=== PATIENT | female | born 1995 ===

== ENCOUNTER 2016-11-27 06:22 | Inpatient (IN) | payer OTHER ==
[2016-11-27 07:14] LABS: BASO # 0.1 K/uL (0.0-0.2); BASO % 0.3 % (0.0-2.0); EOS # 0.2 K/uL (0.0-0.7); EOS % 1.6 % (0.0-4.0); HEMATOCRIT 39.4 % (34.0-47.0); LYMPH # 1.4 K/uL (1.0-4.3); MEAN CELL VOLUME 89.2 fL (81.0-99.0); MEAN CORPUSCULAR HEMOGLOBIN 30.2 pg (27.0-31.0); MEAN CORPUSCULAR HGB CONC 33.9 g/dL (33.0-37.0); MEAN PLATELET VOLUME 8.2 fL (7.2-11.7); MONO # 1.2 K/uL (0.0-0.8); NRBC % 0.1 % (0.0-2.0); PLATELET COUNT 291 K/uL (130-400); RED CELL DISTRIBUTION WIDTH 13.5 % (11.5-14.5)
--- NOTE | 2016-11-27 07:17 | C.PDOC ---
History Of Present Illness 21 yr old female with PMHx of appendicitis (age 12), presents to the ER with complaints of RUQ pain intermittently for the past 1 week. Patient states the pain is worse since yesterday and worse after eating. Reports the pain radiates to the right shoulder. Patient also reports she has not had any food since last night and has not taken any medication for the pain. Patient denies fever, chills, chest pain, SOB, nausea, vomiting, diarrhea, constipation, dysuria, incontinence or back pain. Time Seen by Provider: 11/27/16 07:16 Chief Complaint (Nursing): Abdominal Pain History Per: Patient History/Exam Limitations: no limitations Onset/Duration Of Symptoms: Intermittent Episodes (1 week), Worse Since ( Yesterday) Current Symptoms Are (Timing): Still Present Location Of Pain/Discomfort: RUQ Recent travel outside of the [place]: No Past Medical History Reviewed: Historical Data, Nursing Documentation, Vital Signs Vital Signs: Last Vital Signs Temp 97.9 F 11/28/16 08:00 Pulse 90 11/28/16 08:00 Resp 20 11/28/16 08:00 BP 118/69 11/28/16 08:00 Pulse Ox 97 11/28/16 08:00 Surgical History: Appendectomy Family History: States: No Known Family Hx - Social History Hx Alcohol Use: No Hx Substance Use: No - Immunization History Hx Tetanus Toxoid Vaccination: No Hx Influenza Vaccination: No Hx Pneumococcal Vaccination: No Review Of Systems Except As Marked, All Systems Reviewed And Found Negative. Constitutional: Negative for: Fever, Chills Cardiovascular: Negative for: Chest Pain Respiratory: Negative for: Shortness of Breath Gastrointestinal: Positive for: Abdominal Pain (RUQ pain). Negative for: Nausea , Vomiting, Diarrhea, Constipation Genitourinary: Negative for: Dysuria, Incontinence Musculoskeletal: Negative for: Back Pain Physical Exam - Physical Exam Appears: Non-toxic, In Acute Distress (Mild distress due to pain), Other ((+) Obese) Skin: Warm, Dry, No Rash Oral Mucosa: Moist Chest: Symmetrical, No Tenderness Cardiovascular: Rhythm Regular, No Murmur Respiratory: Normal Breath Sounds, No Rales, No Rhonchi, No Wheezing Gastrointestinal/Abdominal: Soft, Tenderness (RUQ tenderness.), No Guarding, No Rebound, Other ((+) Hernandez sign.) Extremity: Normal ROM, No Swelling Neurological/Psych: Oriented x3, Normal Speech Gait: Steady ED Course And Treatment - Laboratory Results Result Diagrams: 11/27/16 07:03 11/27/16 07:03 O2 Sat by Pulse Oximetry: 100 (RA) Pulse Ox Interpretation: Normal Medical Decision Making Medical Decision Making: PLAN: * US - Gall Bladder * CBC * CMP * HCG * Urinalysis * Morphine IVP * Zoysn IVPB * Sodium Chloride IV US - Gall Bladder HISTORY: RUQ pain COMPARISON: None. TECHNIQUE: Sonographic evaluation of the right upper quadrant of the abdomen. FINDINGS: LIVER: Measures approximately 15.3 cm in length. Smooth contour and normal echogenicity of the liver parenchyma. . There is an echogenic structure within the right lobe liver that measures approximately 1.5 x 1.4 cm that may represent small hemangioma. Followup interval could be performed to assess stability. No intrahepatic bile duct dilatation. GALLBLADDER: Unremarkable. No gallstones. . No sonographic Hernandez sign COMMON BILE DUCT: Measures approximately 4.7 mm. No evidence choledocholithiasis PANCREAS: Unremarkable as visualized. No mass. No ductal dilatation. RIGHT KIDNEY: Measures approximately 10.7 x 5.5 x 4.9 cm in length. Normal echogenicity. No calculus, mass, or hydronephrosis. AORTA: Not visualized. IVC: Unremarkable. OTHER FINDINGS: None . IMPRESSION: Somewhat limited study due to the lack of body habitus . No evidence of cholelithiasis. Probable hemangioma within the right lobe liver. Followup interval could be performed to assess stability Disposition - Disposition Disposition: HOSPITALIZED Disposition Time: 09:44 Condition: STABLE - Clinical Impression Clinical Impression: RUQ abdominal pain - Scribe Statement The provider has reviewed the documentation as recorded by the Brandyn Ferrara Provider Attestation: All medical record entries made by the Brandyn were at my direction and personally dictated by me. I have reviewed the chart and agree that the record accurately reflects my personal performance of the history, physical exam, medical decision making, and the department course for this patient. I have also personally directed, reviewed, and agree with the discharge instructions and disposition.
[2016-11-27 07:26] LABS: CHLORIDE 103 mmol/L (98-107)
[2016-11-27 07:27] LABS: POTASSIUM 3.9 mmol/L (3.6-5.2); SODIUM 139 mmol/L (132-148)
[2016-11-27] MEDS ORDERED: Piperacillin/Tazobact 3.375 GM in Sodium Chloride 100 ML IVPB STA (07:27)
[2016-11-27 07:29] LABS: ALB/GLOB RATIO 1.1 (1.0-2.1); ALKALINE PHOSPHATASE 73 U/L (38-126); ALT/SGPT 31 U/L (9-52); AST/SGOT 31 U/L (14-36); BILIRUBIN,TOTAL 0.6 mg/dL (0.2-1.3); BLOOD UREA NITROGEN 12 mg/dL (7-17); CARBON DIOXIDE 24 mmol/L (22-30); GFR AFRICAN-AMERICAN > 60; GLUCOSE,RANDOM 87 mg/dL (65-105); TOTAL PROTEIN 6.9 g/dL (6.3-8.3)
[2016-11-27 07:30] LABS: CALCIUM 8.7 mg/dl (8.6-10.4)
[2016-11-27] MEDS ORDERED: Morphine 4 MG/ML VIAL ONE ×2 (07:33→08:59)
[2016-11-27] MEDS ORDERED: Piperacillin/Tazobact 3.375 gm 100 ML IVPB ONE (07:33)
[2016-11-27 08:20] LABS: EOSINOPHIL 2 % (0-4); NEUTROPHIL 81 % (50-75); TOTAL CELLS COUNTED 100
[2016-11-27 08:43] LABS: URINE BILIRUBIN NEGATIVE (NEGATIVE); URINE BLOOD NEGATIVE (NEGATIVE); URINE COLOR Yellow (YELLOW); URINE GLUCOSE (UA) NORMAL (Normal); URINE KETONE NEGATIVE (NEGATIVE); URINE LEUKOCYTE ESTERASE TRACE Leu/uL (Negative); URINE PROTEIN NEGATIVE (NEGATIVE)
[2016-11-27 08:48] LABS: RBC URINE 1 /hpf (0-3)
[2016-11-27 08:49] LABS: WBC URINE 2 /hpf (0-5)
[2016-11-27] MEDS ORDERED: Sodium Chloride 0.9% 1,000 ML IV ONE (09:19)
[2016-11-27] MEDS ORDERED: HYDROmorphone 1 mg/ml ISec IVP STA (09:54)
[2016-11-27] MEDS ORDERED: HYDROmorphone 0.5 mg/0.5 ml ISec ONE (10:01)
--- NOTE | 2016-11-27 10:23 | US ---
HISTORY: RUQ pain COMPARISON: None. TECHNIQUE: Sonographic evaluation of the right upper quadrant of the abdomen. FINDINGS: LIVER: Measures approximately 15.3 cm in length. Smooth contour and normal echogenicity of the liver parenchyma. . There is an echogenic structure within the right lobe liver that measures approximately 1.5 x 1.4 cm that may represent small hemangioma. Followup interval could be performed to assess stability. No intrahepatic bile duct dilatation. GALLBLADDER: Unremarkable. No gallstones. . No sonographic Hernandez sign COMMON BILE DUCT: Measures approximately 4.7 mm. No evidence choledocholithiasis PANCREAS: Unremarkable as visualized. No mass. No ductal dilatation. RIGHT KIDNEY: Measures approximately 10.7 x 5.5 x 4.9 cm in length. Normal echogenicity. No calculus, mass, or hydronephrosis. AORTA: Not visualized. IVC: Unremarkable. OTHER FINDINGS: None . IMPRESSION: Somewhat limited study due to the lack of body habitus . No evidence of cholelithiasis. Probable hemangioma within the right lobe liver. Followup interval could be performed to assess stability
[2016-11-27] MEDS: Lactated Ringer's 1,000 ML IV SCH ×2 (14:00→20:05)
[2016-11-27] MEDS: Piperacill/Tazo 3.375gm in Dex 3.375 GM/50 ML BAG IVPB SCH ×2 (14:00→17:00)
--- NOTE | 2016-11-27 15:00 | CP.PCM.HP ---
History of Present Illness - History of Present Illness History of Present Illness: attending: Dr. Menezes CC: Abd pain 21F no relevant PMH presented to the ED with intermittent RUQ pain that started 1 week ago. Most recent episode came after eating fried chicken and pain did not get better until medication in the ED. Associated nausea NBNB vomiting. No diarrhea. Denies F/C CP/SOB numbness tingling in extremities PMH: none PSH: Appendectomy age 12 ALL: NKDA Present on Admission - Present on Admission Any Indicators Present on Admission: No Review of Systems - Review of Systems All systems: reviewed and no additional remarkable complaints except - Constitutional Constitutional: As Per HPI Past Patient History - Infectious Disease Hx of Infectious Diseases: None - Past Social History Smoking Status: Never Smoked - PSYCHIATRIC Hx Substance Use: No - SURGICAL HISTORY Hx Appendectomy: Yes - ANESTHESIA Hx Anesthesia: Yes Hx Anesthesia Reactions: No Meds Allergies/Adverse Reactions: Allergies Allergy/AdvReac Type Severity Reaction Status Date / Time No Known Allergies Allergy Verified 11/27/16 06:32 Physical Exam - Constitutional Appears: Non-toxic, No Acute Distress - Head Exam Head Exam: ATRAUMATIC - Eye Exam Eye Exam: EOMI. absent: Scleral icterus - ENT Exam ENT Exam: Mucous Membranes Moist - Respiratory Exam Respiratory Exam: NORMAL BREATHING PATTERN. absent: Accessory Muscle Use, Respiratory Distress - Cardiovascular Exam Cardiovascular Exam: +S1, +S2. absent: Bradycardia, Tachycardia - GI/Abdominal Exam GI & Abdominal Exam: Soft, Tenderness. absent: Distended, Firm, Hernia, Rigid Additional comments: Tender to palpation RUQ, +Hernandez - Neurological Exam Neurological exam: Alert, Normal Gait, Oriented x3 - Skin Skin Exam: Normal Color, Warm Results - Vital Signs Recent Vital Signs: Last Vital Signs Temp 99.2 F 11/27/16 13:07 Pulse 78 11/27/16 13:07 Resp 20 11/27/16 13:07 BP 116/70 11/27/16 13:07 Pulse Ox 100 11/27/16 13:07 - Labs Result Diagrams: 11/27/16 07:03 11/27/16 07:03 Labs: Laboratory Results - last 24 hr 11/27/16 11/27/16 11/27/16 07:03 07:03 07:03 WBC 15.0 H RBC 4.42 Hgb 13.4 Hct 39.4 MCV 89.2 MCH 30.2 MCHC 33.9 RDW 13.5 Plt Count 291 MPV 8.2 Neut % (Auto) 81.1 H Lymph % (Auto) 9.0 L [place] % (Auto) 8.0 Eos % (Auto) 1.6 Baso % (Auto) 0.3 Neut # 12.2 H Lymph # 1.4 Dubois # 1.2 H Eos # 0.2 Baso # 0.1 Neutrophils % (Manual) 81 H Lymphocytes % (Manual) 9 L Monocytes % (Manual) 8 Eosinophils % (Manual) 2 Platelet Estimate Normal RBC Morphology Normal Sodium 139 Potassium 3.9 Chloride 103 Carbon Dioxide 24 Anion Gap 17 BUN 12 Creatinine 0.6 L Est GFR ( Amer) > 60 Est GFR (Non-Af Amer) > 60 Random Glucose 87 Calcium 8.7 Total Bilirubin 0.6 AST 31 ALT 31 Alkaline Phosphatase 73 Total Protein 6.9 Albumin 3.7 Globulin 3.2 Albumin/Globulin Ratio 1.1 Lipase 45 Urine Color Yellow Urine Clarity Clear Urine pH 6.0 Ur Specific [place] 1.025 Urine Protein Negative Urine Glucose (UA) Normal Urine Ketones Negative Urine Blood Negative Urine Nitrate Negative Urine Bilirubin Negative Urine Urobilinogen 2.0 H Ur Leukocyte Esterase Trace Urine WBC (Auto) 2 Urine RBC (Auto) 1 Ur Squamous Epith Cells < 1 Urine HCG, Qual Negative Assessment & Plan - Assessment and Plan (Free Text) Assessment: 21F RUQ Pain Plan: - NPO - IVF/Abx - GI/DVT ppx - Pain control - conservative management at this time d/w Dr. Clif Webb PGY1
[2016-11-27] MEDS: Morphine 4 MG/ML VIAL IVP PRN ×2 (15:19→20:15)
[2016-11-27] MEDS ORDERED: Iohexol 240 (50 ml) PO ONE (16:00)
[2016-11-27] MEDS ORDERED: Iodixanol 320 MG/ML 100 ML BOTTLE IV ONE (21:09)
[2016-11-28] MEDS: Morphine 4 MG/ML VIAL IVP PRN ×3 (00:08→09:02)
[2016-11-28] MEDS: Piperacill/Tazo 3.375gm in Dex 3.375 GM/50 ML BAG IVPB SCH ×4 (00:09→18:00)
[2016-11-28] MEDS: Lactated Ringer's 1,000 ML IV SCH ×5 (00:14→21:49)
[2016-11-28 09:12] LABS: HEMATOCRIT 40.8 % (34.0-47.0); MEAN CELL VOLUME 90.2 fL (81.0-99.0); MEAN CORPUSCULAR HEMOGLOBIN 29.9 pg (27.0-31.0); MEAN CORPUSCULAR HGB CONC 33.1 g/dL (33.0-37.0); MEAN PLATELET VOLUME 8.2 fL (7.2-11.7); RED CELL DISTRIBUTION WIDTH 13.8 % (11.5-14.5); WHITE BLOOD COUNT 13.1 K/uL (4.8-10.8)
[2016-11-28 09:30] LABS: CHLORIDE 99 mmol/L (98-107); SODIUM 139 mmol/L (132-148)
[2016-11-28 09:32] LABS: ALB/GLOB RATIO 1.1 (1.0-2.1); ALKALINE PHOSPHATASE 65 U/L (38-126); AST/SGOT 26 U/L (14-36); BILIRUBIN,TOTAL 1.4 mg/dL (0.2-1.3); BLOOD UREA NITROGEN 7 mg/dL (7-17); CARBON DIOXIDE 24 mmol/L (22-30); GFR AFRICAN-AMERICAN > 60; GLUCOSE,RANDOM 69 mg/dL (65-105); TOTAL PROTEIN 6.8 g/dL (6.3-8.3)
[2016-11-28 09:33] LABS: ALT/SGPT 31 U/L (9-52); CALCIUM 8.5 mg/dl (8.6-10.4)
--- NOTE | 2016-11-28 11:05 | CT ---
PROCEDURE: CT abdomen and pelvis dated 11/27/2016. HISTORY: RUQ pain COMPARISON: None. TECHNIQUE: Contiguous axial images of the abdomen and pelvis. Oral contrast was administered. No IV contrast given. Coronal and Sagittal reformats generated. Radiation dose: Total exam DLP = 1108.16 mGy-cm. This CT exam was performed using one or more of the following dose reduction techniques: Automated exposure control, adjustment of the mA and/or kV according to patient size, and/or use of iterative reconstruction technique. FINDINGS: LOWER THORAX: Minor atelectasis right lung base. No effusion or basilar pneumothorax. Heart size within range of normal. There may be a tiny hiatal hernia. LIVER: Liver exhibits normal size measuring approximately 15.5 cm in CC dimension. Mild fatty hepatic infiltration. There is a small amount subcapsular hypodense fluid posterolateral surface right lobe liver with mild subjacent mass effect on liver parenchyma ; findings may represent chronic hemorrhage - sequela of old trauma. Clinical correlation recommended. . There also appears to be some infiltration changes within adjacent intercostal spaces There is a small approximately 5.4 mm round/ elliptical shaped focus low attenuation inferior aspect right lobe liver too small to characterize. Most likely represents small hemangioma and probably corresponds to suspected hemangioma on prior gallbladder ultrasound. . GALLBLADDER AND BILE DUCTS: Gallbladder is physiologically distended. No evidence of intraluminal urinary bladder calculi PANCREAS: Pancreas appears grossly unremarkable. SPLEEN: Spleen exhibits normal size. ADRENALS: No adrenal lesions KIDNEYS AND URETERS: Kidneys demonstrate symmetric nephrograms. No evidence of nephrolithiasis or hydronephrosis. BLADDER: Urinary bladder is incompletely distended which presumably accounts thick-walled appearance. Rule out cystitis REPRODUCTIVE: Uterus and adnexal structures grossly unremarkable. In the APPENDIX: Multiple metallic clips are seen in the right lower quadrant of abdomen consistent with this patient's history of prior camacho appendectomy BOWEL: Evaluation of the bowel is somewhat limited due to incomplete opacification. Stomach is distended with oral contrast material and air. Visualized loops of small bowel exhibit normal contour and caliber. No evidence acute mechanical small bowel obstruction. No definitive abnormal mural wall thickening of the colon PERITONEUM: Unremarkable. No fluid collection. No free air. LYMPH NODES: Unremarkable. No enlarged lymph nodes. VASCULATURE: Unremarkable. No aortic aneurysm. BONES: No fracture or destructive lesion. OTHER FINDINGS: None. IMPRESSION: There appears to be a small amount subcapsular hypodense fluid posterolateral surface right lobe liver with mild subjacent mass effect on liver parenchyma ; findings may represent chronic hemorrhage - sequela of old trauma. Clinical correlation recommended. . There also appears to be some infiltration changes within adjacent to the intercostal spaces Suspect small hemangioma within the inferior aspect right lobe liver. . Mild fatty hepatic infiltration.
[2016-11-28] MEDS: HYDROmorphone 0.5 mg/0.5 ml ISec IVP PRN ×3 (11:15→19:32)
--- NOTE | 2016-11-28 11:48 | CP.PCM.PN ---
Subjective - Date & Time of Evaluation Date of Evaluation: 11/28/16 Time of Evaluation: 07:45 - Subjective Subjective: General Surgery- Dr. Menezes Pt S&E at bedside this AM. RUQ Pain has progressively worsened since yesterday. Changed pain medication. denies current episodes of N/V/D Objective - Vital Signs/Intake and Output Vital Signs (last 24 hours): Temp Pulse Resp BP Pulse Ox 97.9 F 90 20 118/69 100 11/28/16 08:00 11/28/16 08:00 11/28/16 08:00 11/28/16 08:00 11/28/16 08:37 Intake and Output: 11/28/16 11/28/16 06:59 18:59 Intake Total 2600 Balance 2600 - Medications Medications: Current Medications Acetaminophen (Tylenol 325mg Tab) 650 mg PO Q6 PRN PRN Reason: Fever >100.4 F Famotidine (Pepcid) 20 mg IVP Q12 [facility] Last Admin: 11/28/16 09:04 Dose: 20 mg Hydromorphone HCl (Dilaudid) 1 mg IVP Q4H PRN PRN Reason: Pain, moderate (4-7) Last Admin: 11/28/16 11:15 Dose: 1 mg Piperacillin Sod/Tazobactam Sod (Zosyn 3.375 Gm Iv Premix) 3.375 gm in 50 mls @ 100 mls/hr IVPB Q6H [facility] Last Admin: 11/28/16 11:16 Dose: 100 mls/hr Lactated Ringer's (Lactated Ringer's) 1,000 mls @ 125 mls/hr IV .Q8H [facility] Last Admin: 11/28/16 04:22 Dose: Not Given Ondansetron HCl (Zofran Inj) 4 mg IVP Q4 PRN PRN Reason: Nausea/Vomiting - Labs Labs: 11/28/16 09:05 11/28/16 09:05 - Constitutional Appears: Non-toxic, No Acute Distress - Head Exam Head Exam: ATRAUMATIC - Eye Exam Eye Exam: EOMI. absent: Scleral icterus - ENT Exam ENT Exam: Mucous Membranes Moist - Cardiovascular Exam Cardiovascular Exam: +S1, +S2 - GI/Abdominal Exam GI & Abdominal Exam: Guarding, Soft, Tenderness. absent: Distended, Firm, Rigid Additional comments: +ruq tenderness, + Hernandez, voluntary guarding. - Neurological Exam Neurological Exam: Alert, Awake, Oriented x3 - Skin Skin Exam: Normal Color Assessment and Plan - Assessment and Plan (Free Text) Assessment: 21F biliary colic vs acalculous cholecystits, hemangioma on liver Plan: - NPO - IVF/Abx - Pain control - serial abd exams - further recs per Dr. Clif Webb PGY1
[2016-11-29] MEDS: Piperacill/Tazo 3.375gm in Dex 3.375 GM/50 ML BAG IVPB SCH ×4 (00:11→17:47)
[2016-11-29] MEDS: HYDROmorphone 0.5 mg/0.5 ml ISec IVP PRN ×4 (00:17→17:49)
[2016-11-29] MEDS: Lactated Ringer's 1,000 ML IV SCH ×4 (05:00→21:33)
[2016-11-29 08:14] LABS: HEMATOCRIT 39.5 % (34.0-47.0); MEAN CELL VOLUME 89.5 fL (81.0-99.0); MEAN CORPUSCULAR HEMOGLOBIN 30.6 pg (27.0-31.0); MEAN CORPUSCULAR HGB CONC 34.2 g/dL (33.0-37.0); MEAN PLATELET VOLUME 7.9 fL (7.2-11.7); RED CELL DISTRIBUTION WIDTH 13.8 % (11.5-14.5); WHITE BLOOD COUNT 13.4 K/uL (4.8-10.8)
[2016-11-29 08:28] LABS: CHLORIDE 97 mmol/L (98-107); POTASSIUM 4.3 mmol/L (3.6-5.2); SODIUM 138 mmol/L (132-148)
[2016-11-29 08:30] LABS: GFR AFRICAN-AMERICAN > 60
[2016-11-29 08:31] LABS: ALB/GLOB RATIO 1.2 (1.0-2.1); ALKALINE PHOSPHATASE 67 U/L (38-126); ALT/SGPT 29 U/L (9-52); AST/SGOT 20 U/L (14-36); BILIRUBIN,TOTAL 1.5 mg/dL (0.2-1.3); BLOOD UREA NITROGEN 7 mg/dL (7-17); CARBON DIOXIDE 25 mmol/L (22-30); TOTAL PROTEIN 7.4 g/dL (6.3-8.3)
[2016-11-29 08:32] LABS: CALCIUM 8.8 mg/dl (8.6-10.4); GLUCOSE,RANDOM 67 mg/dL (65-105)
--- NOTE | 2016-11-29 09:50 | NM ---
PROCEDURE: Nuclear Medicine Hepatobiliary Scan HISTORY: r/o cholecystitis COMPARISON: None available. TECHNIQUE: 5.000 mCi of technetium 99m Mebrofenin was administered intravenously. Planar images of the abdomen were obtained at 5 min intervals to 60 mins. Delayed images were also obtained. FINDINGS: LIVER: Timely and homogenous uptake. COMMON BILE DUCT: identified at 10 mins. GALLBLADDER: identified at 50 mins. SMALL BOWEL: Identified at 10 mins. IMPRESSION: Normal Hepatobiliary Scan. The cystic duct is patent.
--- NOTE | 2016-11-29 15:23 | CP.PCM.PN ---
Subjective - Date & Time of Evaluation Date of Evaluation: 11/29/16 Time of Evaluation: 07:00 - Subjective Subjective: GENERAL SURGERY PROGRESS NOTE FOR DR. SIMMONS Patient was in HIDA scan this morning and re-evaluated this afternoon. She reports that she vomited yesterday afternoon after Tylenol. She states that the RUQ pain comes and goes depending on when she gets the pain medicine. The pain is located in her RUQ and radiates to her right shoulder. She states that the pain is overall better than when she first came into the hospital. After her negative HIDA, she was given regular diet but she only had some chicken soup and felt nauseous and some pain so she didn't eat anymore. Objective - Vital Signs/Intake and Output Vital Signs (last 24 hours): Temp Pulse Resp BP Pulse Ox 99.6 F 109 H 20 127/75 97 11/29/16 00:00 11/29/16 00:00 11/29/16 00:00 11/29/16 00:00 11/29/16 00:00 Intake and Output: 11/29/16 11/29/16 06:59 18:59 Intake Total 1000 Balance 1000 - Medications Medications: Current Medications Acetaminophen (Tylenol 325mg Tab) 975 mg PO Q8 [facility] Last Admin: 11/29/16 06:09 Dose: Not Given Famotidine (Pepcid) 20 mg IVP Q12 [facility] Last Admin: 11/29/16 09:49 Dose: 20 mg Heparin Sodium (Porcine) (Heparin) 5,000 units SC Q12 [facility] Last Admin: 11/29/16 12:17 Dose: 5,000 units Hydromorphone HCl (Dilaudid) 1 mg IVP Q4H PRN PRN Reason: Pain, moderate (4-7) Last Admin: 11/29/16 13:21 Dose: 1 mg Piperacillin Sod/Tazobactam Sod (Zosyn 3.375 Gm Iv Premix) 3.375 gm in 50 mls @ 100 mls/hr IVPB Q6H [facility] Last Admin: 11/29/16 12:18 Dose: 100 mls/hr Lactated Ringer's (Lactated Ringer's) 1,000 mls @ 125 mls/hr IV .Q8H [facility] Last Admin: 11/29/16 12:13 Dose: Not Given Ondansetron HCl (Zofran Inj) 4 mg IVP Q4 PRN PRN Reason: Nausea/Vomiting - Labs Labs: 11/29/16 08:02 11/29/16 08:02 - Constitutional Appears: Non-toxic, No Acute Distress - Head Exam Head Exam: NORMAL INSPECTION - Respiratory Exam Respiratory Exam: NORMAL BREATHING PATTERN. absent: Respiratory Distress - Cardiovascular Exam Cardiovascular Exam: +S1, +S2 - GI/Abdominal Exam GI & Abdominal Exam: Soft, Tenderness (RUQ ). absent: Distended, Firm, Guarding , Rigid, Rebound - Neurological Exam Neurological Exam: Alert, Awake, Oriented x3 - Psychiatric Exam Psychiatric exam: Normal Affect, Normal Mood Assessment and Plan - Assessment and Plan (Free Text) Assessment: 21yo F with RUQ abdominal pain of unknown etiology, hemangioma on liver, patient denies trauma to liver - Leukocytosis WBC 13.4 (13.1) - T bili elevated 1.5 today (1.4 yesterday) - LFTs WNL - HIDA: normal - Had nausea and pain after regular diet, will switch to CLD - Discussed plan with Dr. Clif Costa PGY-3
--- NOTE | 2016-11-29 16:22 | CP.PCM.CON ---
History of Present Illness - History of Present Illness History of Present Illness: CC: RUQ pain HPI: 21 year old woman developed RUQ pain 3 days ago, triggered by inspiration, pleuritic. Patient admitted to surgical service. Sono, CT, HIDA all unremarkable for gallbladder disease. Has been on Morphine, feels nauseated, and doesn't feel like eating. CT showed slight hemorrhage in liver. Also looks like hemangioma. Patient denies trauma, forceful coughing, URI symptoms, fevers , hemoptysis. Review of Systems - Constitutional Constitutional: Fatigue. absent: Chills, Fever, Weight Loss, Weakness - EENT Eyes: absent: Change in Vision - Cardiovascular Cardiovascular: absent: Chest Pain - Respiratory Respiratory: absent: Cough, Dyspnea - Gastrointestinal Gastrointestinal: absent: Abdominal Pain, Melena, Nausea Past Patient History - Infectious Disease Hx of Infectious Diseases: None - Past Medical History & Family History Past Medical History?: Yes - Past Social History Smoking Status: Light Smoker < 10 Cigarettes Daily Alcohol: None - PULMONARY Hx Asthma: Yes - MUSCULOSKELETAL/RHEUMATOLOGICAL Hx Falls: No - GASTROINTESTINAL Other/Comment: appendectomy - PSYCHIATRIC Hx Substance Use: No - SURGICAL HISTORY Hx Appendectomy: Yes - ANESTHESIA Hx Anesthesia: Yes Hx Anesthesia Reactions: No Meds Allergies/Adverse Reactions: Allergies Allergy/AdvReac Type Severity Reaction Status Date / Time No Known Allergies Allergy Verified 11/27/16 06:32 - Medications Medications: Current Medications Acetaminophen (Tylenol 325mg Tab) 975 mg PO Q8 [facility] Last Admin: 11/29/16 06:09 Dose: Not Given Famotidine (Pepcid) 20 mg IVP Q12 [facility] Last Admin: 11/29/16 09:49 Dose: 20 mg Heparin Sodium (Porcine) (Heparin) 5,000 units SC Q12 [facility] Last Admin: 11/29/16 12:17 Dose: 5,000 units Hydromorphone HCl (Dilaudid) 1 mg IVP Q4H PRN PRN Reason: Pain, moderate (4-7) Last Admin: 11/29/16 13:21 Dose: 1 mg Piperacillin Sod/Tazobactam Sod (Zosyn 3.375 Gm Iv Premix) 3.375 gm in 50 mls @ 100 mls/hr IVPB Q6H [facility] Last Admin: 11/29/16 12:18 Dose: 100 mls/hr Lactated Ringer's (Lactated Ringer's) 1,000 mls @ 125 mls/hr IV .Q8H [facility] Last Admin: 11/29/16 12:13 Dose: Not Given Ondansetron HCl (Zofran Inj) 4 mg IVP Q4 PRN PRN Reason: Nausea/Vomiting Physical Exam - Constitutional Appears: No Acute Distress - Head Exam Head Exam: NORMOCEPHALIC - Eye Exam Eye Exam: absent: Scleral icterus - ENT Exam ENT Exam: Normal Exam - Neck Exam Neck exam: Positive for: Normal Inspection - Respiratory Exam Respiratory Exam: NORMAL BREATHING PATTERN - Cardiovascular Exam Cardiovascular Exam: REGULAR RHYTHM - GI/Abdominal Exam GI & Abdominal Exam: Soft, Tenderness. absent: Distended, Guarding, Mass, Organomegaly, Rebound Results - Vital Signs Recent Vital Signs: Last Vital Signs Temp 99.6 F 11/29/16 00:00 Pulse 109 H 11/29/16 00:00 Resp 20 11/29/16 00:00 BP 127/75 11/29/16 00:00 Pulse Ox 97 11/29/16 00:00 - Labs Result Diagrams: 11/29/16 08:02 11/29/16 08:02 Labs: Laboratory Results - last 24 hr 11/29/16 11/29/16 08:02 08:02 WBC 13.4 H RBC 4.42 Hgb 13.5 Hct 39.5 MCV 89.5 MCH 30.6 MCHC 34.2 RDW 13.8 Plt Count 295 MPV 7.9 Sodium 138 Potassium 4.3 Chloride 97 L Carbon Dioxide 25 Anion Gap 20 BUN 7 Creatinine 0.7 Est GFR ( Amer) > 60 Est GFR (Non-Af Amer) > 60 Random Glucose 67 Calcium 8.8 Total Bilirubin 1.5 H AST 20 ALT 29 Alkaline Phosphatase 67 Total Protein 7.4 Albumin 4.0 Globulin 3.4 Albumin/Globulin Ratio 1.2 Assessment & Plan (1) RUQ abdominal pain Assessment and Plan: Normal gallbladder workup Pain is primarily pleuritic: Need to consider Pulm Embolus, or pain secondary to small hepatic hemorrhage- seems to be contained, perhaps a hemangioma ruptured/ Nausea likely from narcotics Recommend: Medical consultation is recommended. No GI intervention planned Status: Acute
[2016-11-30] MEDS: Piperacill/Tazo 3.375gm in Dex 3.375 GM/50 ML BAG IVPB SCH ×5 (00:05→17:11)
[2016-11-30] MEDS: HYDROmorphone 0.5 mg/0.5 ml ISec IVP PRN ×2 (01:48→11:53)
[2016-11-30] MEDS: Lactated Ringer's 1,000 ML IV SCH ×3 (04:00→12:01)
[2016-11-30 07:54] LABS: MEAN CELL VOLUME 89.9 fL (81.0-99.0); MEAN CORPUSCULAR HEMOGLOBIN 30.3 pg (27.0-31.0); MEAN CORPUSCULAR HGB CONC 33.7 g/dL (33.0-37.0); MEAN PLATELET VOLUME 8.1 fL (7.2-11.7); RED CELL DISTRIBUTION WIDTH 13.4 % (11.5-14.5); WHITE BLOOD COUNT 9.7 K/uL (4.8-10.8)
--- NOTE | 2016-11-30 08:30 | CP.PCM.PN ---
Subjective - Date & Time of Evaluation Date of Evaluation: 11/30/16 Time of Evaluation: 08:26 - Subjective Subjective: F/U abdom pain. Denies SOB, Sz, loc, CHUA, cough, RB , melena, diarrhea, hematuria, hemoptysis RUQ pain is with breathing and palpation- much less pain now. Had constipation - better- BM yest Objective - Vital Signs/Intake and Output Vital Signs (last 24 hours): Temp Pulse Resp BP Pulse Ox 98.8 F 99 H 20 130/84 97 11/30/16 00:00 11/30/16 00:00 11/30/16 00:00 11/30/16 00:00 11/30/16 00:00 Intake and Output: 11/30/16 11/30/16 06:59 18:59 Intake Total 1999 Balance 1999 - Medications Medications: Current Medications Acetaminophen (Tylenol 325mg Tab) 975 mg PO Q8 [facility] Last Admin: 11/30/16 06:00 Dose: Not Given Famotidine (Pepcid) 20 mg IVP Q12 [facility] Last Admin: 11/29/16 21:39 Dose: 20 mg Heparin Sodium (Porcine) (Heparin) 5,000 units SC Q12 [facility] Last Admin: 11/29/16 21:37 Dose: 5,000 units Hydromorphone HCl (Dilaudid) 1 mg IVP Q4H PRN PRN Reason: Pain, moderate (4-7) Last Admin: 11/30/16 01:48 Dose: 1 mg Piperacillin Sod/Tazobactam Sod (Zosyn 3.375 Gm Iv Premix) 3.375 gm in 50 mls @ 100 mls/hr IVPB Q6H [facility] Last Admin: 11/30/16 06:01 Dose: 100 mls/hr Lactated Ringer's (Lactated Ringer's) 1,000 mls @ 125 mls/hr IV .Q8H [facility] Last Admin: 11/30/16 04:00 Dose: Not Given Ondansetron HCl (Zofran Inj) 4 mg IVP Q4 PRN PRN Reason: Nausea/Vomiting - Labs Labs: 11/30/16 07:43 11/29/16 08:02 - Constitutional Appears: Well - Neck Exam Neck Exam: absent: Tenderness - Respiratory Exam Respiratory Exam: Clear to Ausculation Bilateral - Cardiovascular Exam Cardiovascular Exam: REGULAR RHYTHM - GI/Abdominal Exam GI & Abdominal Exam: Soft, Tenderness, Normal Bowel Sounds. absent: Guarding, Rigid, Mass, Rebound - Neurological Exam Neurological Exam: Alert, Oriented x3 Assessment and Plan (1) RUQ abdominal pain Assessment & Plan: Pleuritic- consider pulmonary related. Consider things like pulm embolus. HIDA is negative. I doubt cholecystitis. LFTs are mainly ok- TB=1.5. CT- shows liver lesion and small natasha-hepatic fluid.- consider leaked cyst. Rec- follow up abdom pain. Check direct bilirubin Status: Acute
[2016-11-30 08:44] LABS: CHLORIDE 98 mmol/L (98-107); POTASSIUM 3.9 mmol/L (3.6-5.2); SODIUM 139 mmol/L (132-148)
[2016-11-30 08:46] LABS: GFR AFRICAN-AMERICAN > 60
[2016-11-30 08:47] LABS: ALKALINE PHOSPHATASE 63 U/L (38-126); ALT/SGPT 23 U/L (9-52); AST/SGOT 20 U/L (14-36); BLOOD UREA NITROGEN 5 mg/dL (7-17); CALCIUM 8.6 mg/dl (8.6-10.4); CARBON DIOXIDE 27 mmol/L (22-30); GLUCOSE,RANDOM 82 mg/dL (65-105)
[2016-11-30 16:09] VITALS: RESP 20
--- NOTE | 2016-11-30 22:49 | CP.PCM.PN ---
Subjective - Date & Time of Evaluation Date of Evaluation: 11/30/16 Time of Evaluation: 07:00 - Subjective Subjective: GENERAL SURGERY PROGRESS NOTE FOR DR. SIMMONS Patient seen and examined at bedside. She reports 3 episodes of diarrhea last night. She still has some RUQ pain but states it is better. Her right shoulder pain has resolved. She is tolerating her liquid diet and denies nausea or vomiting. Objective - Vital Signs/Intake and Output Vital Signs (last 24 hours): Temp Pulse Resp BP Pulse Ox 97.7 F 89 20 123/80 97 11/30/16 15:00 11/30/16 15:00 11/30/16 15:00 11/30/16 15:00 11/30/16 15:00 Intake and Output: 11/30/16 12/01/16 18:59 06:59 Intake Total 1400 Balance 1400 - Medications Medications: Current Medications Acetaminophen (Tylenol 325mg Tab) 975 mg PO Q8 [facility] Last Admin: 11/30/16 21:21 Dose: 975 mg Famotidine (Pepcid) 20 mg IVP Q12 [facility] Last Admin: 11/30/16 21:20 Dose: 20 mg Heparin Sodium (Porcine) (Heparin) 5,000 units SC Q12 [facility] Last Admin: 11/30/16 21:20 Dose: 5,000 units Hydromorphone HCl (Dilaudid) 1 mg IVP Q4H PRN PRN Reason: Pain, moderate (4-7) Last Admin: 11/30/16 11:53 Dose: 1 mg Piperacillin Sod/Tazobactam Sod (Zosyn 3.375 Gm Iv Premix) 3.375 gm in 50 mls @ 100 mls/hr IVPB Q6H [facility] Last Admin: 11/30/16 17:11 Dose: 100 mls/hr Ondansetron HCl (Zofran Inj) 4 mg IVP Q4 PRN PRN Reason: Nausea/Vomiting Last Admin: 11/30/16 17:11 Dose: 4 mg - Labs Labs: 11/30/16 07:43 11/30/16 07:43 - Constitutional Appears: Non-toxic, No Acute Distress - Eye Exam Eye Exam: EOMI, Normal appearance - Respiratory Exam Respiratory Exam: NORMAL BREATHING PATTERN. absent: Respiratory Distress - Cardiovascular Exam Cardiovascular Exam: +S1, +S2 - GI/Abdominal Exam GI & Abdominal Exam: Soft, Tenderness (mild tenderness in RUQ (less than yesterday)). absent: Distended, Firm, Guarding, Rigid, Rebound - Neurological Exam Neurological Exam: Alert, Awake, Oriented x3 - Psychiatric Exam Psychiatric exam: Normal Affect, Normal Mood - Skin Skin Exam: Dry, Normal Color, Warm Assessment and Plan - Assessment and Plan (Free Text) Assessment: 21yo F with RUQ abdominal pain of unknown etiology, hemangioma on liver, patient denies trauma to liver - Afebrile, VSS - Leukocytosis resolved - T bili WNL today, GI ordered direct bilirubin - HIDA: normal - Tolerating liquid diet, will advance diet - Pain improving, will decrease pain medicine - GI following - Discussed plan with Dr. Clif Costa PGY-3
[2016-12-01] MEDS: Piperacill/Tazo 3.375gm in Dex 3.375 GM/50 ML BAG IVPB SCH ×2 (00:19→05:19)
[2016-12-01 07:47] LABS: BASO % 0.6 % (0.0-2.0); EOS # 0.4 K/uL (0.0-0.7); EOS % 4.8 % (0.0-4.0); HEMATOCRIT 39.9 % (34.0-47.0); LYMPH # 1.4 K/uL (1.0-4.3); MEAN CELL VOLUME 89.6 fL (81.0-99.0); MEAN CORPUSCULAR HGB CONC 34.6 g/dL (33.0-37.0); MEAN PLATELET VOLUME 7.9 fL (7.2-11.7); MONO # 0.8 K/uL (0.0-0.8); MONO % 10.2 % (0.0-10.0); RED CELL DISTRIBUTION WIDTH 13.2 % (11.5-14.5); WHITE BLOOD COUNT 7.9 K/uL (4.8-10.8)
[2016-12-01 08:12] LABS: CHLORIDE 99 mmol/L (98-107); POTASSIUM 3.8 mmol/L (3.6-5.2); SODIUM 136 mmol/L (132-148)
[2016-12-01 08:14] LABS: ALB/GLOB RATIO 0.9 (1.0-2.1); AST/SGOT 28 U/L (14-36); BILIRUBIN,DIRECT 0.4 mg/dL (0.0-0.4); BILIRUBIN,TOTAL 0.6 mg/dL (0.2-1.3); CARBON DIOXIDE 25 mmol/L (22-30); GFR AFRICAN-AMERICAN > 60; TOTAL PROTEIN 7.6 g/dL (6.3-8.3)
[2016-12-01 08:15] LABS: ALKALINE PHOSPHATASE 61 U/L (38-126); ALT/SGPT 25 U/L (9-52); BLOOD UREA NITROGEN 7 mg/dL (7-17); CALCIUM 8.9 mg/dl (8.6-10.4); GLUCOSE,RANDOM 80 mg/dL (65-105)
[2016-12-01 08:25] VITALS: O2SAT 97
--- NOTE | 2016-12-01 10:11 | CP.PCM.PN ---
Subjective - Date & Time of Evaluation Date of Evaluation: 12/01/16 Time of Evaluation: 10:08 - Subjective Subjective: CC: Follow up RUQ pain Pain has resolved. Able to eat/drink. Some diarrhea now, probably from antibiotics. leukocytosis resolved Objective - Vital Signs/Intake and Output Vital Signs (last 24 hours): Temp Pulse Resp BP Pulse Ox 98.1 F 87 20 104/71 97 12/01/16 08:24 12/01/16 08:24 12/01/16 08:24 12/01/16 08:24 12/01/16 08:24 Intake and Output: 12/01/16 12/01/16 06:59 18:59 Intake Total 1400 1000 Balance 1400 1000 - Medications Medications: Current Medications Acetaminophen (Tylenol 325mg Tab) 975 mg PO Q8 [facility] Last Admin: 12/01/16 05:21 Dose: Not Given Famotidine (Pepcid) 20 mg IVP Q12 [facility] Last Admin: 11/30/16 21:20 Dose: 20 mg Heparin Sodium (Porcine) (Heparin) 5,000 units SC Q12 [facility] Last Admin: 11/30/16 21:20 Dose: 5,000 units Piperacillin Sod/Tazobactam Sod (Zosyn 3.375 Gm Iv Premix) 3.375 gm in 50 mls @ 100 mls/hr IVPB Q6H [facility] Last Admin: 12/01/16 05:19 Dose: 100 mls/hr Morphine Sulfate (Morphine) 2 mg IVP Q4 PRN PRN Reason: Pain, moderate (4-7) Ondansetron HCl (Zofran Inj) 4 mg IVP Q4 PRN PRN Reason: Nausea/Vomiting Last Admin: 11/30/16 17:11 Dose: 4 mg - Labs Labs: 12/01/16 07:34 12/01/16 07:34 - Constitutional Appears: Well, No Acute Distress - Eye Exam Eye Exam: absent: Scleral icterus - Respiratory Exam Respiratory Exam: Clear to Ausculation Bilateral - Cardiovascular Exam Cardiovascular Exam: REGULAR RHYTHM - GI/Abdominal Exam GI & Abdominal Exam: Soft. absent: Tenderness, Organomegaly Assessment and Plan (1) RUQ abdominal pain Assessment & Plan: Likely from hemorrhagic cyst or hemangioma Consider discharging patient Will stop Zosyn as patient having diarrhea probably from Zosyn and no clear bacterial infection identified Status: Acute
[2016-12-01 16:23] VITALS: BP 111/68; PULSE 94; TEMP 98.6
[2016-12-01] MEDS ORDERED: Pneumococcal 23-Valent Vaccine IM ONE (16:27)
[2016-12-01] MEDS ORDERED: Influenza Vaccine 60 mcg/0.5 mL SYR (4YR UP) IM ONE (16:27)
--- NOTE | 2016-12-01 18:41 | CP.PCM.DIS ---
Provider - Provider Date of Admission: 11/27/16 09:43 Attending physician: Steph Menezes MD Consults: Dr. Hill - HALI Time Spent in preparation of Discharge (in minutes): 25 Hospital Course - Lab Results Lab Results: Most Recent Lab Values WBC 7.9 K/uL (4.8-10.8) 12/01/16 07:34 RBC 4.46 Mil/uL (3.80-5.20) 12/01/16 07:34 Hgb 13.8 g/dL (11.0-16.0) 12/01/16 07:34 Hct 39.9 % (34.0-47.0) 12/01/16 07:34 MCV 89.6 fL (81.0-99.0) 12/01/16 07:34 MCH 31.0 pg (27.0-31.0) 12/01/16 07:34 MCHC 34.6 g/dL (33.0-37.0) 12/01/16 07:34 RDW 13.2 % (11.5-14.5) 12/01/16 07:34 Plt Count 306 K/uL (130-400) 12/01/16 07:34 MPV 7.9 fL (7.2-11.7) 12/01/16 07:34 Neut % (Auto) 66.4 % (50.0-75.0) 12/01/16 07:34 Lymph % (Auto) 18.0 % (20.0-40.0) L 12/01/16 07:34 [place] % (Auto) 10.2 % (0.0-10.0) H 12/01/16 07:34 Eos % (Auto) 4.8 % (0.0-4.0) H 12/01/16 07:34 Baso % (Auto) 0.6 % (0.0-2.0) 12/01/16 07:34 Neut # 5.3 K/uL (1.8-7.0) 12/01/16 07:34 Lymph # 1.4 K/uL (1.0-4.3) 12/01/16 07:34 [place]clean # 0.8 K/uL (0.0-0.8) 12/01/16 07:34 Eos # 0.4 K/uL (0.0-0.7) 12/01/16 07:34 Baso # 0.0 K/uL (0.0-0.2) 12/01/16 07:34 Neutrophils % (Manual) 81 % (50-75) H 11/27/16 07:03 Lymphocytes % (Manual) 9 % (20-40) L 11/27/16 07:03 Monocytes % (Manual) 8 % (0-10) 11/27/16 07:03 Eosinophils % (Manual) 2 % (0-4) 11/27/16 07:03 Platelet Estimate Normal (NORMAL) 11/27/16 07:03 RBC Morphology Normal 11/27/16 07:03 Sodium 136 mmol/L (132-148) 12/01/16 07:34 Potassium 3.8 mmol/L (3.6-5.2) 12/01/16 07:34 Chloride 99 mmol/L (98-107) 12/01/16 07:34 Carbon Dioxide 25 mmol/L (22-30) 12/01/16 07:34 Anion Gap 16 (10-20) 12/01/16 07:34 BUN 7 mg/dL (7-17) 12/01/16 07:34 Creatinine 0.7 mg/dL (0.7-1.2) 12/01/16 07:34 Est GFR ( Amer) > 60 12/01/16 07:34 Est GFR (Non-Af Amer) > 60 12/01/16 07:34 Random Glucose 80 mg/dL (65-105) 12/01/16 07:34 Calcium 8.9 mg/dl (8.6-10.4) 12/01/16 07:34 Total Bilirubin 0.6 mg/dL (0.2-1.3) 12/01/16 07:34 Direct Bilirubin 0.4 mg/dL (0.0-0.4) 12/01/16 07:34 AST 28 U/L (14-36) 12/01/16 07:34 ALT 25 U/L (9-52) 12/01/16 07:34 Alkaline Phosphatase 61 U/L (38-126) 12/01/16 07:34 Total Protein 7.6 g/dL (6.3-8.3) 12/01/16 07:34 Albumin 3.7 g/dL (3.5-5.0) 12/01/16 07:34 Globulin 3.9 gm/dL (2.2-3.9) 12/01/16 07:34 Albumin/Globulin Ratio 0.9 (1.0-2.1) L 12/01/16 07:34 Lipase 45 U/L (23-300) 11/27/16 07:03 Urine Color Yellow (YELLOW) 11/27/16 07:03 Urine Clarity Clear (Clear) 11/27/16 07:03 Urine pH 6.0 (5.0-8.0) 11/27/16 07:03 Ur Specific [place] 1.025 (1.003-1.030) 11/27/16 07:03 Urine Protein Negative mg/dL (NEGATIVE) 11/27/16 07:03 Urine Glucose (UA) Normal mg/dL (Normal) 11/27/16 07:03 Urine Ketones Negative mg/dL (NEGATIVE) 11/27/16 07:03 Urine Blood Negative (NEGATIVE) 11/27/16 07:03 Urine Nitrate Negative (NEGATIVE) 11/27/16 07:03 Urine Bilirubin Negative (NEGATIVE) 11/27/16 07:03 Urine Urobilinogen 2.0 mg/dL (0.2-1.0) H 11/27/16 07:03 Ur Leukocyte Esterase Trace Donte/uL (Negative) 11/27/16 07:03 Urine WBC (Auto) 2 /hpf (0-5) 11/27/16 07:03 Urine RBC (Auto) 1 /hpf (0-3) 11/27/16 07:03 Ur Squamous Epith Cells < 1 /hpf (0-5) 11/27/16 07:03 Urine HCG, Qual Negative (NEGATIVE) 11/27/16 07:03 - Hospital Course Hospital Course: 21 y/o F presented to the ED on 11/27/16 w/ intermittent RUQ pain that started ~ 1 week prior to admission. In ED, pt underwent Abd US and CT both of which showed normal/distended gallbladder but possible liver hemangioma and small amount of subcapsular fluid in the right lobe liver w/ mild mass effect on the liver parenchyma. Pt was admitted to r/o acute cholecystitis. HIDA scan was ordered and came back negative. GI was also consulted and agreed liver lesion likely from hemorrhagic cyst or hemangioma. Pt was kept for leukocytosis and pain management both of which have resolved. Today, patient denies abd pain, F/C , N/V, D/C. Pt tolerating regular diet and is cleared for discharge w/ instructions to follow up w/ PMD and Dr. Menezes. Discharge Exam - Head Exam Head Exam: NORMAL INSPECTION - Eye Exam Eye Exam: Normal appearance - ENT Exam ENT Exam: Mucous Membranes Moist - Respiratory Exam Respiratory Exam: NORMAL BREATHING PATTERN. absent: Accessory Muscle Use, Respiratory Distress - Cardiovascular Exam Cardiovascular Exam: absent: Bradycardia, Tachycardia - GI/Abdominal Exam GI & Abdominal Exam: Soft. absent: Distended, Guarding, Organomegaly, Rebound, Tenderness - Extremities Exam Extremities exam: normal inspection - Neurological Exam Neurological exam: Alert, Oriented x3 - Psychiatric Exam Psychiatric exam: Normal Affect, Normal Mood - Skin Skin Exam: Dry, Intact, Normal Color, Warm Discharge Plan - Follow Up Plan Condition: STABLE Disposition: HOME/ ROUTINE Instructions: Cholecystitis (DC), Acute Abdominal Pain (DC), Acute Abdominal Pain (GEN) Additional Instructions: follow up with primary care within 1 week follow up w/ Dr. Menezes w/in 1 week Take all medication as prescribed Referrals: [facility] [Outside] Steph Menezes MD [Staff Provider] -
== END 2016-12-01 17:48 | disposition home or self-care (01) | DRG 183 ==
LOC: C.ER 06:22 → C.9E 09:43 → OBSVTOIN 09:43 → C.3T 12:37
PROVIDERS: ADMIT Specialist; ATTEND Specialist
DX: D18.03 Hemangioma of intra-abdominal structures (principal); D72.829 Elevated white blood cell count, unspecified; J45.909 Unspecified asthma, uncomplicated; K59.00 Constipation, unspecified; R11.0 Nausea; T40.605A Adverse effect of unspecified narcotics, initial encounter; Z87.891 Personal history of nicotine dependence; Z90.49 Acquired absence of other specified parts of digestive tract